=== PATIENT | male | born 2000 | race Two or more races ===

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

== ENCOUNTER 2021-10-15 19:35 | Emergency (ER) | payer MEDICAID ==
[~2021-10-15] VITALS: Ht 165.1 cm; Wt 86.2 kg
--- NOTE | 2021-10-15 19:50 | NUR ---
[id number] FROM HOME, PER FAMILYPATIENT WASFOUND WITH BELT TIED AROUND NECK UNCONSCIOUS BUT CONSCIOUS WHEN PARAMEDICS ARRIVED UPON TRIAGE PT DENIES S/I & H/I "FEELING MORE STRESSED LATELY".
--- NOTE | 2021-10-15 19:53 | NUR ---
ANDI/ CRISIS TEAM NOTIFED
--- NOTE | 2021-10-15 19:55 | NUR ---
UNABLE TO PROVIDE URINE AT THIS TIME
--- NOTE | 2021-10-15 20:00 | NUR ---
ALIREZA PLACED HOLD @2000 FOR DANGER TO HIMSELF
--- NOTE | 2021-10-15 20:32 | NUR ---
COVID ANTIGEN SWAB COLLECTED
[2021-10-15 20:35] LABS: BASOPHILS % (AUTO) 0.5 % (0.0-2.0); EOSINOPHILS % (AUTO) 0.6 % (0.0-6.0); HEMATOCRIT 42 % (39-51); HEMOGLOBIN 14.1 g/dL (13.5-17.5); LYMPHOCYTES # (AUTO) 1.5 K/uL (0.8-4.8); LYMPHOCYTES % (AUTO) 17.9 % (20.0-44.0); MEAN CORPUSCULAR HGB CONC 34 g/dl (31.0-36.0); MEAN CORPUSCULAR VOLUME 93 fL (80-96); MONOCYTES # (AUTO) 0.5 K/uL (0.1-1.30); MONOCYTES % (AUTO) 6.2 % (2.0-12.0); NEUTROPHILS # (AUTO) 6.3 K/uL (1.8-8.9); NEUTROPHILS % (AUTO) 74.8 % (43.0-81.0); PLATELET COUNT (AUTO) 240 K/uL (150-450); RED BLOOD CELL COUNT(AUTO) 4.52 MIL/uL (4.5-6.0); WHITE BLOOD COUNT (AUTO) 8.4 K/uL (4.3-11.0)
[2021-10-15 20:51] LABS: CALCIUM, SERUM 8.5 mg/dL (8.5-10.1); CARBON DIOXIDE 28 mmol/L (21-32); CHLORIDE 106 mmol/L (98-107); CREATININE 0.8 mg/dL (0.6-1.3); GLUCOSE 97 mg/dL (74-106); POTASSIUM 3.6 mmol/L (3.5-5.1); SODIUM SERUM 139 mmol/L (136-145); UREA NITROGEN, BLOOD 14 mg/dL (7-18)
[2021-10-15 20:57] LABS: ALANINE AMINOTRANSFERASE 54 U/L (12-78); ALCOHOL, BLOOD < 3 mg/dL (0-0); ALKALINE PHOSPHATASE 79 U/L (46-116); ASPARTATE AMINOTRANSFERASE 24 U/L (15-37); BILIRUBIN,DIRECT 0.1 mg/dL (0.0-0.2); BILIRUBIN,TOTAL 0.7 mg/dL (0.2-1.0); TOTAL PROTEIN, SERUM 7.8 g/dL (6.4-8.2)
[2021-10-15 21:01] LABS: ACETAMINOPHEN < 1 ug/ml (10-30)
[2021-10-15] MEDS ORDERED: LORAZEPAM INJ 2 MG/ML VIAL ONE (21:15)
[2021-10-15] MEDS ORDERED: OLANZAPINE 10 MG VIAL IM ONE ×2 (21:15→21:30)
[2021-10-15] MEDS ORDERED: LORAZEPAM INJ 2 MG/ML VIAL IM ONE (21:30)
[2021-10-15 23:33] LABS: BILIRUBIN,URINE SMALL (NEGATIVE); COLOR,URINE YELLOW (YELLOW); LEUKOCYTE ESTERASE ,URINE NEGATIVE (NEGATIVE); NITRITE, URINE NEGATIVE (NEGATIVE); PROTEIN,URINE NEGATIVE (NEGATIVE); UGLUCOSE NEGATIVE (NEGATIVE); UROBILINOGEN,URINE 0.2 EU/dL (0.2)
--- NOTE | 2021-10-16 00:08 | NUR ---
LEWIS MOTHER [phone]
--- NOTE | 2021-10-16 05:30 | NUR ---
PATIENT RESTING IN BED, EASY TO AROUSE, VSS, TOLERATING FLUIDS PO WELL. SITTER AT BEDSIDE. PT CONNECTED TO MONITOR, WILL CONTINUE TO MONITOR.
--- NOTE | 2021-10-16 08:02 | NUR ---
BREAKFAST TRAY PROVIDED
--- NOTE | 2021-10-16 12:26 | NUR ---
RECEIVED A CALL FROM ANDI [employer]. FOLLOWED UP WITH [facility] AND AT THE MOMENT DO NOT HAVE BEDS TO ACCOMODATE ADMISSION. PER ANDI PT WILL MOST LIKELY BE ADMITTED TOMORROW. WILL HAVE ROOM CLEANER PSYCHIATRIST ROUND ON PATIENT TODAY.
--- NOTE | 2021-10-16 20:58 | NUR ---
DR BARRIOS AT BEDSIDE
[2021-10-16] MEDS ORDERED: LORAZEPAM 1 MG TABLET PO ONE (23:30)
[2021-10-16] MEDS ORDERED: OLANZAPINE 5 MG TABLET PO ONE (23:30)
[2021-10-17] MEDS ORDERED: LORAZEPAM 1 MG TABLET ONE (01:16)
[2021-10-17] MEDS ORDERED: OLANZAPINE 5 MG TABLET ONE (01:17)
--- NOTE | 2021-10-17 07:57 | NUR ---
THE PATIENT IS RECEIVED IN ER BED #13. THE PATIENT IS EASILY AROUSABLE BY VERBAL STIMULI. RESPIRATION REGULAR AND UNLABORE. WILL CONTINUE TO MONITOR THE PATIENT.
--- NOTE | 2021-10-17 10:15 | NUR ---
FAXED CLINICALS TO [facility] [FAX: [phone]], [facility] [FAX: [phone]].
--- NOTE | 2021-10-17 10:54 | NUR ---
CALLED [facility] AND SET UP S TRANSPORT ETA [id number]
--- NOTE | 2021-10-17 10:54 | NUR ---
PT ACCEPTED TO [facility] IN [place] UNDER THE CARE OF DR APONTE. REPORT WAS GIVEN TO GINI FOR DARLENE.
[2021-10-17 11:18] VITALS: BP 129/74
--- NOTE | 2021-10-17 11:25 | NUR ---
[facility] TRANSPORTATION HAS ARRIVED, REPORT WAS GIVEN, PT TRANSFERRED TO [facility] IN STABLE CONDITION
== END 2021-10-17 11:29 ==
LOC: ER 19:42
DX: T71.162A Asphyxiation due to hanging, intentional self-harm, initial encounter (principal); F32.A Depression, unspecified; F12.10 Cannabis abuse, uncomplicated; R45.1 Restlessness and agitation
CPT/HCPCS: 36415; 80048; 80076; 80143; 80307; 80320; 81003; 85025; 87426; 96372 ×2; 99291; C9803; J2060; J3490; G0480